=== PATIENT | male | born 1935 | race Caucasian/White ===

== ENCOUNTER 2017-07-25 00:45 | Emergency (ER) | payer MEDICARE ==
[~2017-07-25] VITALS: Ht 180.3 cm; Wt 97.5 kg
[2017-07-25] MEDS ORDERED: DULO60CA6 PO (01:03)
[2017-07-25] MEDS ORDERED: cloNIDine HCL 0.1 MG TABLET PO ONE (01:15)
--- NOTE | 2017-07-25 01:19 | PHYS DOC ---
Adult General Chief Complaint Chief Complaint: HEADACHE HPI HPI Patient is a 81 year old M who presents with headache for the past 2 days. Patient states he's had a headache has been gradually getting worse over the past 2 days and tonight it was worse. Patient denies any acute onset. Patient states the headache is in his right eye and radiates to his back was head. Patient is a history of headaches. Patient's blood pressure has also been elevated in association with a headache. Patient has some nausea and vomiting once today. Patient denies any chest pain or shortness of breath. Patient denies any fevers. Patient denies any other symptoms. Review of Systems Review of Systems GEN: Denies fevers, chills, sweats HEENT: Denies blurred vision, sore throat CV: Denies chest pain RESP: Denies shortness of air, cough GI: Denies n/v/d NEURO: Headache MSK: Denies weakness, joint pain/swelling Current Medications Current Medications Current Medications Medications (Trade) Dose Ordered Sig/Evangelina Start Time Stop Time Status Last Admin Dose Admin Clonidine HCl (Catapres) 0.2 mg 1X ONCE 07/25/17 01:15 07/25/17 01:40 DC 07/25/17 01:18 0.2 MG Allergies Allergies Allergies Coded Allergies Type Severity Reaction Last Updated Verified No Known Drug Allergies 07/25/17 No Physical Exam Physical Exam GEN.: No apparent distress. Alert and oriented. HEENT: Head is normocephalic, atraumatic NECK: Supple. LUNGS: CTAB. HEART: RRR, S1, S2 present. Peripheral pulses intact ABDOMEN: Soft, nontender. Positive bowel sounds. EXTREMITIES: Without any cyanosis. NEUROLOGIC: Normal speech, normal tone, cranial nerves II through XII are grossly intact without any focal neurological deficits PSYCHIATRIC: Normal affect, normal mood. SKIN: No ulcerations Current Patient Data Vital Signs Vital Signs Date Time Temp Pulse Resp B/P (MAP) Pulse Ox O2 Delivery O2 Flow Rate FiO2 07/25/17 01:18 63 210/94 07/25/17 00:55 98.0 16 96 98.0 Lab Values Laboratory Tests Test 07/25/17 01:14 White Blood Count 15.2 x10^3/uL (4.0-11.0) H Red Blood Count 4.32 x10^6/uL (4.30-5.70) Hemoglobin 13.5 g/dL (13.0-17.5) Hematocrit 40.2 % (39.0-53.0) Mean Corpuscular Volume 93 fL (79-100) Mean Corpuscular Hemoglobin 31 pg (25-35) Mean Corpuscular Hemoglobin Concent 34 g/dL (31-37) Red Cell Distribution Width 14.3 % (11.5-14.5) Platelet Count 241 x10^3/uL (140-400) Neutrophils (%) (Auto) 83 % (31-73) H Lymphocytes (%) (Auto) 9 % (24-48) L Monocytes (%) (Auto) 5 % (0-9) Eosinophils (%) (Auto) 2 % (0-3) Basophils (%) (Auto) 1 % (0-3) Neutrophils # (Auto) 12.6 x10^3uL (1.8-7.7) H Lymphocytes # (Auto) 1.4 x10^3/uL (1.0-4.8) Monocytes # (Auto) 0.8 x10^3/uL (0.0-1.1) Eosinophils # (Auto) 0.3 x10^3/uL (0.0-0.7) Basophils # (Auto) 0.1 x10^3/uL (0.0-0.2) Platelet Estimate Pending Sodium Level 141 mmol/L (136-145) Potassium Level 4.4 mmol/L (3.5-5.1) Chloride Level 103 mmol/L (98-107) Carbon Dioxide Level 29 mmol/L (21-32) Anion Gap 9 (6-14) Blood Urea Nitrogen 17 mg/dL (8-26) Creatinine 1.0 mg/dL (0.7-1.3) Estimated GFR (Cockcroft-Gault) 72.1 Glucose Level 115 mg/dL (70-99) H Calcium Level 9.0 mg/dL (8.5-10.1) Laboratory Tests 07/25/17 01:14 Laboratory Tests 07/25/17 01:14 EKG EKG 0116: EKG shows normal sinus rhythm rate of 61 no STEMI[] Radiology/Procedures Radiology/Procedures CT scan of the head NAD[] Course & Med Decision Making Course & Med Decision Making Pertinent Labs and Imaging studies reviewed. (See chart for details) ED course: Patient was seen and examined emergency room basic blood work and a CT of the head was ordered along with EKG 0303: Patient was reevaluated and updated on CT findings and lab results. Patient is asymptomatic and states his headache is feels much better. Patient's blood pressure is 167/77. Patient states he is ready go home not want to be admitted to the hospital. MDM: After reviewing the chart, CC/HPI/PMH, physical exam, [lab results], [ radiological results], I do not believe the patient is having hypertensive emergency or an acute intracranial process warranting further workup and/or admission at this time. On reexamination the patient's headache has resolved and his blood pressures come down and he elected to go home. Patient did have a slightly elevated white count of 15 with no history of an acute infectious process therefore recommended patient follow-up with PCP to have his blood pressure managed better and to recheck his CBC. Patient is stable for discharge. Additional verbal discharge instructions were provided to the patient and that if symptoms get worse or any new symptoms arise that are worrisome to the patient he is to return to the emergency room immediately [] Dragon Disclaimer Dragon Disclaimer This electronic medical record was generated, in whole or in part, using a voice recognition dictation system. Departure Departure Impression: Primary Impression: Hypertension Additional Impression: Headache Disposition: 01 HOME, SELF-CARE Condition: IMPROVED Patient Instructions: General Headache Without Cause, Hypertension Additional Instructions: Please follow-up with your family physician in the next one to 2 days and return if symptoms increase Problem Qualifiers JEAN OLIVER DO Jul 25, 2017 01:19
[2017-07-25 01:23] LABS: BASO # 0.1 x10^3/uL (0.0-0.2); BASO % 1 % (0-3); EOS % 2 % (0-3); HEMATOCRIT 40.2 % (39.0-53.0); HEMOGLOBIN 13.5 g/dL (13.0-17.5); LYMPH # 1.4 x10^3/uL (1.0-4.8); LYMPH % 9 % (24-48); MEAN CORPUSCULAR HEMOGLOBIN 31 pg (25-35); MEAN CORPUSCULAR HGB CONC 34 g/dL (31-37); MEAN CORPUSCULAR VOLUME 93 fL (79-100); MONO % 5 % (0-9); NEUT % 83 % (31-73); PLATELET COUNT 241 x10^3/uL (140-400); RED BLOOD COUNT 4.32 x10^6/uL (4.30-5.70); RED CELL DISTRIBUTION WIDTH 14.3 % (11.5-14.5); WHITE BLOOD COUNT 15.2 x10^3/uL (4.0-11.0)
[2017-07-25 01:42] LABS: GFR 72.1; POTASSIUM 4.4 mmol/L (3.5-5.1)
--- NOTE | 2017-07-25 01:55 | RAD ---
CT head without contrast TECHNIQUE: [address] imaging skull base to vertex. HISTORY: Headache. FINDINGS: Indistinct hypodensity of the left central rosita image 9 likely due to streak artifact from adjacent skull base although underlying pontine ischemic lesion cannot be excluded. Mild generalized brain atrophy. No definite infarct evident. No intracranial hemorrhage, mass or hydrocephalus. Orbits, mastoids, paranasal sinuses and bones are unremarkable. IMPRESSION: No acute intracranial CT abnormality. See discussion above. Exposure: One or more of the following individualized dose reduction techniques were utilized for this examination: 1. Automated exposure control 2. Adjustment of the mA and/or kV according to patient size 3. Use of iterative reconstruction technique Electronically signed by: Javier Oliveira MD (07/25/2017 1:52 AM) [facility]
[2017-07-25 03:00] VITALS: BP 167/77
[2017-07-25 04:22] LABS: % BASOS 2 % (0-3); % EOS 4 % (0-5)
[2017-07-25 04:23] LABS: PLT ESTIMATE ADEQUATE (ADEQUATE); TOXIC VACUOLATION SLIGHT
--- NOTE | 2017-07-25 12:39 | EKG ---
[facility] [address] [place] [address] Test Date: 2017-07-25 Test Time: 01:16:47 Pat Name: RIYA GILMORE Department: Room: Gender: M Reconditioner: : 1935 Requested By: JEAN OLIVER Order Number: [id number] Reading MD: Chris Jones Measurements Intervals [place] Rate: 61 P: -28 MT: 182 QRS: -2 QRSD: 80 T: 18 QT: 422 QTc: 426 Interpretive Statements SINUS RHYTHM Electronically Signed On 08-04-2017 10:18:22 CDT by Chris Jones
== END 2017-07-25 03:17 | disposition home or self-care (01) ==
LOC: ER 00:45
DX: I10 Essential (primary) hypertension (principal)
CPT/HCPCS: 36415; 70450; 80048; 85007; 85025; 93005; 99285-25